=== PATIENT | female | born 1965 | race Caucasian/White ===

== ENCOUNTER 2022-03-02 10:07 | Outpatient (CLI) | payer BC | END 2022-03-02 10:08 | disposition home or self-care (01) | LOC: CSHMAMMO 10:07 | PROVIDERS: ATTEND Family Medicine | DX: Z12.31 Encounter for screening mammogram for malignant neoplasm of breast (principal) | CPT/HCPCS: 77063; 77067 ==

== ENCOUNTER 2025-05-01 10:48 | Outpatient (CLI) | payer BC ==
[2025-05-01] MEDS ORDERED: Iopamidol 300 61% 100 ML VIAL FS ONE (11:11)
== END 2025-05-01 10:49 | disposition home or self-care (01) ==
LOC: CSHCT 10:48
PROVIDERS: ATTEND Family Medicine
DX: R22.2 Localized swelling, mass and lump, trunk (principal); M19.09 Primary osteoarthritis, other specified site
CPT/HCPCS: 71270; Q9967